=== PATIENT | male | born 1990 | race African-American/Black ===

== ENCOUNTER 2021-03-08 13:21 | Emergency (ER) | payer OTHER ==
[~2021-03-08] VITALS: Ht 165.1 cm; Wt 84.8 kg
--- NOTE | ~2021-03-08 | EMS ---
[address] [address] EMS Patient Care Report Name: PARI LONG Room #: DEP KENYA Queen#: [id number] Admission: 03/08/21 Attend Phys: Discharge: 03/08/21 Date of : [birth year] Report #: [id number] THIS REPORT FOR: //name// Report Transmitted: 03/11/2021 15:13 EMS Care Summary [place], [place]/[facility] Incident [id number] @ 03/08/2021 12:57 Incident Location [address] [place] [address] Patient PARI LONG Male, 30 Years 1990 Patient Address Patient History Novel Coronavirus (COVID-19), Patient Allergies No known allergies, Patient Medications None Reported, Chief Complaint covid Disposition Transported No Lights/[place] Dispatch Reason Breathing Problem Transported To [facility] Narrative pt met walking out of his apartment. pt a&ox4 gcs 15 and did not present in apparent distress. pt stated hes covid positive x2 days. pt stated he has weakness, fever, and back pain. pt stated he has no hospital preference and agreed for [facility]. pt is on facetime with someone for the duration of pt contact. pt walked into ambulance. pt was transferred onto ems cot and was secured in a [address] [address] EMS Patient Care Report Name: PARI LONG Room #: DEP [facility]#: [id number] Admission: 03/08/21 Attend Phys: Discharge: 03/08/21 Date of : [birth year] Report #: [id number] semi fowlers position without incident. pt was transported non emergent. transport was uneventful and rested on ems cot. pt care was transferred to appropriate staff and ems goes back in service. pts bag, phone, keys were left with pt. Initial Vitals @13:04P: 104,R: 20,BP: 130/86,Pain: 0/10,GCS: 15,SpO2: 98,Revised Trauma: 12, @13:28P: 104,R: 20,BP: 124/86,GCS: 15,SpO2: 98,Revised Trauma: 12, Assessments @13:02MENTAL:No Abnormalities,SKIN:No Abnormalities,HEENT:Head/Face: No Abnormalities,Eyes: No Abnormalities,Neck/Airway: No Abnormalities,LUNG SOUNDS:General: No Abnormalities,Left Upper: No Abnormalities,Right Upper: No Abnormalities,Left Lower: No Abnormalities,Right Lower: No Abnormalities,ABDOMEN:General: No Abnormalities,Left Upper: No Abnormalities,Right Upper: No Abnormalities,Left Lower: No Abnormalities,Right Lower: No Abnormalities,PELVIS//GI:No Abnormalities,EXTREMITIES:Left Arm: No Abnormalities,Right Arm: No Abnormalities,Left Leg: No Abnormalities,Right Leg: No Abnormalities,PULSE:NEURO:No Abnormalities,@13:11MENTAL:No Abnormalities,SKIN:No Abnormalities,HEENT:Head/Face: No Abnormalities,Eyes: No Abnormalities,Neck/Airway: No Abnormalities,LUNG SOUNDS:General: No Abnormalities,Left Upper: No Abnormalities,Right Upper: No Abnormalities,Left Lower: No Abnormalities,Right Lower: No Abnormalities,ABDOMEN:General: No Abnormalities,Left Upper: No Abnormalities,Right Upper: No Abnormalities,Left Lower: No Abnormalities,Right Lower: No Abnormalities,PELVIS//GI:No Abnormalities,EXTREMITIES:Left Arm: No Abnormalities,Right Arm: No Abnormalities,Left Leg: No Abnormalities,Right Leg: No Abnormalities,PULSE:NEURO:No Abnormalities, Impression Generalized Weakness Procedures @13:02 ALS Assessment Response: UnchangedSucceeded Timeline 12:55,Call Received 12:55,Dispatch Notified 12:57,Dispatched 12:58,En Route 13:01,On Scene 13:02,At Patient 13:02,ALS Assessment,Response: UnchangedSucceeded, 13:04,BP: 130/86 M,PULSE: 104,RR: 20 R,SPO2: 98 Ox,ETCO2: ,BG: ,PAIN: 0,GCS: 15, [address] [address] EMS Patient Care Report Name: PARI LONG Room #: [facility] KENYA Queen#: [id number] Admission: 03/08/21 Attend Phys: Discharge: 03/08/21 Date of : [birth year] Report #: [id number] 13:05,Depart Scene 13:16,At Destination 13:28,BP: 124/86 M,PULSE: 104,RR: 20 R,SPO2: 98 Ox,ETCO2: ,BG: ,PAIN: ,GCS: 15, 13:32,Call Closed Disclaimer [email or web address] Copyright 202 [employer] This EMS Care Summary contains data elements from the applicable legal record (which may be displayed differently). It is designed to provide pertinent information for the following purposes: continuity of care, clinical quality, and state data reporting. The complete legal record is available to ED staff and administrators of the receiving hospital in [email or web address]'s Patient Tracker. All data is provided "as is."
[2021-03-08 13:51] LABS: HEMATOCRIT 44.7 % (42.0-52.0); MCH 27.3 pg (26.0-34.0); MCHC 33.5 g/dL (28.0-37.0); MCV 81.4 fL (80.0-100.0); PLATELET COUNT 136 thou/uL (150-400); RBC 5.49 mil/uL (4.50-6.00); RDW 13.3 % (10.5-14.5); WBC 2.5 thou/uL (4.0-11.0)
[2021-03-08 14:01] LABS: CALCIUM 8.6 mg/dL (8.5-10.1); CREATININE 1.4 mg/dL (0.7-1.3); POTASSIUM 3.7 mmol/L (3.5-5.1)
[2021-03-08 14:11] LABS: ALBUMIN 3.5 g/dL (3.4-5.0); TOTAL BILIRUBIN 0.5 mg/dL (0.2-1.0); TOTAL PROTEIN 7.9 g/dL (6.4-8.2)
[2021-03-08 14:42] LABS: ABSOLUTE NEUTROPHILS 1.6 thou/uL (1.4-8.2); ATYPICAL LYMPHS 2 %
[2021-03-08 16:08] VITALS: BP 135/80
--- NOTE | 2021-03-09 10:01 | EKG ---
[address] [place] [address] ELECTROCARDIOGRAM REPORT Name: PARI LONG Room #: DEP Bret#: [id number] Admission: 03/08/21 Attend Phys: Discharge: 03/08/21 Date of : [birth year] Report #: [id number] [facility] ED Test Date: 2021-03-08 Test Time: 13:52:22 Pat Name: PARI LONG Department: Room: Gender: [employer]: DOMINIC : 1990 Requested By: Ileana Flynn Order Number: [id number] MD: Everardo Cardozo Measurements Intervals [place] Rate: 101 P: 2 ID: 195 QRS: 28 QRSD: 87 T: -11 QT: 316 QTc: 410 Interpretive Statements Sinus tachycardia LAE, consider biatrial enlargement Nonspecific ST segment abnormalities Anteroseptal infarct, age indeterminate No previous ECG available for comparison Electronically Signed On 03-09-2021 10:00:51 CONSULTING IT ARCHITECT by Everardo Cardozo [email or web address] <ELECTRONICALLY SIGNED> By: Everardo Cardozo MD 03/09/21 1000 1352 1352 Everardo Cardozo MD /BRAYAN
== END 2021-03-08 15:45 | disposition home or self-care (01) ==
LOC: ER 13:21
PROVIDERS: Emergency Medicine
DX: U07.1 COVID-19 (principal)